=== PATIENT | female | born 1955 | race Hispanic/Latino ===

== ENCOUNTER → 2017-10-11 | Outpatient (CLI) | payer OTHER ==
[~2017-10-11] MED LIST: IOPAMIDOL 370 MG/ML 200 ML INFUS..BTL INJ ONE; SODIUM CHLORIDE 0.9% 50ML 50 ML ONE
[2017-10-11 08:36] LABS: BLOOD UREA NITROGEN 16 mg/dL (7-26); BUN/CREATININE RATIO 25 (6-25); CREATININE, SERUM 0.64 mg/dL (0.57-1.11); EST GLOMERULAR FILTRATION RATE > 60 ML/MIN (60-)
--- NOTE | 2017-10-11 09:16 | Diagnostic Imaging Report ---
PROCEDURE: CT ABDOMEN WITH CONTRAST TECHNIQUE: The abdomen was scanned utilizing a multidetector helical scanner from the diaphragm to the iliac crest after the IV administration of 100 cc Isovue 370. Coronal and sagittal multiplanar reformations were obtained. COMPARISON: CT abdomen and pelvis with and without contrast 11/09/2016. INDICATIONS: EPIGASTRIC PAIN, LIVER CYST FINDINGS: LOWER THORAX: Normal. HEPATOBILIARY: As before, there are multiple hypoattenuating hepatic lesions with internal attenuation less than 20 Hounsfield units compatible with simple cysts. Manufacturing Team Leader lesions as follows: Segment 4A previously 4.5 cm in diameter now 4.2 cm (series 2, image 11) Ovoid lesion in segment 3 previously measured 4.5 cm, now 4.8 cm (series 2 image 17) Multilobulated lesion in segment IVb previously measured 6.6 cm, now 6.3 cm (series 2 image 25) Segment 5 lesion previously measured 6.8 cm, now 6.6 cm (series 2 image 34) Segment 6 lesion previously measured 6.2 cm, now 6.6 cm (series 2 image 34) No solid hepatic mass lesion. No intrahepatic biliary ductal dilatation. The gallbladder is unremarkable. SPLEEN: No splenomegaly. PANCREAS: No focal masses or ductal dilatation. ADRENALS: No adrenal nodules. KIDNEYS: No hydronephrosis, stones, or solid mass lesions. PERITONEUM / RETROPERITONEUM: No free air or fluid. LYMPH NODES: No lymphadenopathy. VESSELS: Circumaortic left renal vein. Abdominal aorta is non-aneurysmal. Portal vein, splenic vein, and central superior mesenteric vein are patent. GI TRACT: Visualized portions of the bowel demonstrate no distention or wall thickening. Cecum and appendix are not included on the scan field of the current examination. BONES AND SOFT TISSUES: No focal soft tissue abnormalities. No osseous destructive lesion. IMPRESSION: Multiple simple hepatic cysts, stable to marginally increased in size relative to 11/09/2016. No solid or enhancing hepatic lesions. Dictated by: Sachin Gongora M.D. on 10/11/2017 at 9:16 Electronically approved by: Sachin Gongora M.D. on 10/11/2017 at 9:16
== END ==
LOC: CT 07:49
PROVIDERS: ATTEND Surgery
DX: R10.9 Unspecified abdominal pain (principal); K76.89 Other specified diseases of liver
CPT/HCPCS: 36415; 74160; 82565; 84520; 93970; Q9967

== ENCOUNTER 2017-11-29 07:40 | Inpatient (IN) | payer OTHER ==
[2017-11-27 10:33] LABS: BASOPHILS % 0.6 % (0.0-1.0); EOSINOPHILS # (AUTO) 0.1 (0.0-0.4); EOSINOPHILS % 1.5 % (0.0-6.0); HEMATOCRIT 42.1 % (34.2-44.1); LYMPHOCYTES # (AUTO) 1.4 (1.0-3.2); LYMPHOCYTES % 29.2 % (18.0-39.1); MEAN CORPUSCULAR HEMOGLOBIN 29.7 pg (28-32); MEAN CORPUSCULAR HGB CONC 33.3 g/dL (31-35); MEAN CORPUSCULAR VOLUME 89.2 fL (81-99); MONOCYTES # (AUTO) 0.4 (0.2-0.8); MONOCYTES % 7.4 % (4.4-11.3); NEUTROPHILS # (AUTO) 2.9 (2.1-6.9); NEUTROPHILS % 61.1 % (38.7-80.0); PLATELET COUNT 148 x10e3/uL (140-360); RED BLOOD COUNT 4.72 x10e6/uL (3.6-5.1); RED CELL DISTRIBUTION WIDTH 12.6 % (11.7-14.4)
[2017-11-27 10:55] LABS: BLOOD UREA NITROGEN 18 mg/dL (7-26); BUN/CREATININE RATIO 23 (6-25); CARBON DIOXIDE 30 mmol/L (22-29); CHLORIDE 107 mmol/L (98-107); CREATININE, SERUM 0.77 mg/dL (0.57-1.11); EST GLOMERULAR FILTRATION RATE > 60 ML/MIN (60-); GLUCOSE 120 mg/dL (74-118); SODIUM 146 mmol/L (136-145)
--- NOTE | 2017-11-27 11:46 | Diagnostic Imaging Report ---
PROCEDURE: Frontal and lateral views of the chest. COMPARISON: None. INDICATIONS: PRE OP SURGERY MONDAY LIVER FINDINGS: Lines/tubes: None. Lungs: The lungs are well inflated and clear. There is no evidence of pneumonia or pulmonary edema. Pleura: There is no pleural effusion or pneumothorax. Mild biapical pleural scarring. Heart and mediastinum: The heart and the mediastinum are normal. Bones: No acute bony abnormality. IMPRESSION: 1. No acute cardiopulmonary disease. Cynthia Nicole M.D. Dictated by: Cynthia Nicole M.D. on 11/27/2017 at 11:48 Electronically approved by: Cynthia Nicole M.D. on 11/27/2017 at 11:48
[~2017-11-29] VITALS: Ht 157.5 cm; Wt 74.9 kg
[2017-11-29] MEDS: SODIUM CHLORIDE 0.9% 1000ML 1,000 ML IV SCH ×3 (02:30→20:23)
[2017-11-29 06:35] LABS: INR 1.14; PROTHROMBIN TIME 13.7 seconds (11.9-14.5)
[2017-11-29 06:36] LABS: PARTIAL THROMBOPLASTIN TIME 29.4 seconds (23.8-35.5)
[~2017-11-29 07:40] MED LIST changes: +BUPIVACAINE 0.25%/EPI 30ML SDV INJ ONE; +HEPARIN SOD/SOD CHLORIDE 1,000 ML ONE; -IOPAMIDOL 370 MG/ML 200 ML INFUS..BTL INJ ONE; -SODIUM CHLORIDE 0.9% 50ML 50 ML ONE; +SYNTHROID100 MCG PO
--- OUTSIDE RECORDS SUMMARY | 2017-11-29 07:42 | XMS REPORT ---
Author [facility] Address Unknown Phone Unavailable Care Team Providers Care Wood Veneer Taper Name Role Phone DANNY SCHMIDT Unavailable Unavailable Problems This patient has no known problems. Allergies, Adverse Reactions, Alerts This patient has no known allergies or adverse reactions. Medications This patient has no known medications. Results Test Description Test Time Test Comments Text Results Atomic Results Result Comments CHEST 2 VIEWS [place] [address] Patient Name: JEANETTE WHITTAKER MR #: [id number] : 1955 Age/Sex: 62/F Req # : [id number] Adm Physician: Ordered by: DANNY SCHMIDT MD Report #: [id number] Location: OR Room/Bed: Procedure: 0430- 0030 DX/CHEST 2 VIEWS Exam Date: 11/27/17 Exam Time : 1000 REPORT STATUS: Signed PROCEDURE: Frontal and lateral views of the chest. COMPARISON: None. INDICATIONS: PRE OP SURGERY MONDAY LIVER FINDINGS: Lines/tubes: None. Lungs: The lungs are well inflated and clear. There is no evidence of pneumonia or pulmonary edema. Pleura: There is no pleural effusion or pneumothorax. Mild biapical pleural scarring. Heart and mediastinum: The heart and the mediastinum are normal. Bones: No acute bony abnormality. IMPRESSION: 1. No acute cardiopulmonary disease. Cynthia Callahan M.D. Dictated by: Cynhtia Callahan M.D. on 11/27/2017 at 11: 48 Electronically approved by: Cynthia Callahan M.D. on 11/27/2017 at 11:48 Dictated By: LEO CALLAHAN MD, MD 114 Transcribed By: ALEX on 11/27 1148 COPY TO: DANNY SCHMIDT MD CT ABDOMEN W [place] [address] Patient Name: JEANETTE WHITTAKER MR #: [id number] : 1955 Age/Sex: 62/F Req # : [id number] Adm Physician: Ordered by: DANNY SCHMIDT MD Report #: [id number] Location: CT Room/Bed: Procedure: [id number] 0006 CT/CT ABDOMEN W Exam Date: 10/11/17 Exam Time: 0850 REPORT STATUS: Signed PROCEDURE: CT ABDOMEN WITH CONTRAST TECHNIQUE: The abdomen was scanned utilizing a multidetector helical scanner from the diaphragm to the iliac crest after the IV administration of 100 cc Isovue 370. Coronal and sagittal multiplanar reformations were obtained. COMPARISON: CT abdomen and pelvis with and without contrast 11/09/2016. INDICATIONS: EPIGASTRIC PAIN, LIVER CYST FINDINGS: LOWER THORAX: Normal. HEPATOBILIARY: As before, there are multiple hypoattenuating hepatic lesions with internal attenuation less than 20 Hounsfield units compatible with simple cysts. 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 No intrahepatic biliary ductal dilatation. The gallbladder is unremarkable. SPLEEN: No splenomegaly. PANCREAS: No focal masses or ductal dilatation. ADRENALS: No adrenal nodules. KIDNEYS: No hydronephrosis, stones, or solid mass lesions. PERITONEUM / RETROPERITONEUM: No free air or fluid. LYMPH NODES: No lymphadenopathy. VESSELS: Circumaortic left renal vein. Abdominal aorta is non-aneurysmal. Portal vein, splenic vein, and central superior mesenteric vein are patent. GI TRACT: Visualized portions of the bowel demonstrate no distention or wall thickening. Cecum and appendix are not included on the scan field of the current examination. BONES AND SOFT TISSUES: No focal soft tissue abnormalities. No osseous destructive lesion. IMPRESSION: Multiple simple hepatic cysts, stable to marginally increased in size relative to 11/09/2016. No solid or enhancing hepatic lesions. Dictated by: Rui Solis M.D. on 10/11/2017 at 9:16 Electronically approved by: Rui Solis M.D. on 10/11/2017 at 9:16 Dictated By: RUI SOLIS MD [id number] Transcribed By: ALEX on 10/11/17 0916 COPY TO: DANNY SCHMIDT MD
--- OUTSIDE RECORDS SUMMARY | 2017-11-29 07:42 | XMS REPORT ---
Author Author Admin, [place] Organization [facility] Address [address] [address] Phone Allergies, Adverse Reactions, Alerts Allergy Name Reaction Description Start Date Severity Status Provider No Known Allergies Viktoriyajanny Patel Conditions or Problems Problem Name Problem Code Onset Date Status Entry Date Provider Comment Standard Description Annotate Infusion Nurse annual exam V72.3 Active Issac Richards MD Special investigations and examinations - Gynecological examination Hypothyroidism 244.9 Active Issac Richards MD Unspecified hypothyroidism Menopause symptoms 627.2 Active Issac Richards MD Symptomatic menopausal or female climacteric states Screening, vaginal cancer V76.47 Active Issac Richards MD Screening for malignant neoplasms of the vagina Medication List Medication Instructions Start Date Stop Date Generic Name NDC Status Provider Patient Instruction LEVOTHYROXINE SODIUM 100 MCG ORAL TABLET LEVOTHYROXINE SODIUM 80246828983 Active Issac Richards MD Active Vital Signs Date Name Value Unit Range Description blood pressure, diastolic 81 mm[Hg] BP bay blood pressure, systolic 135 mm[Hg] BP sys height E&M 62.25 [in_us] Bdy height pulse rate E&M 71 /min Heart rate respiratory rate E&M 16 /min Resp rate temperature E&M 98.3 [degF] Body temperature weight E&M 159 [lb_av] Weight Measured Procedures Code Procedure Name Date Entry Date Standard Description CPT-68445 New Patient Well Exam (40 - 64 Yrs) - 15377 10:04:27 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
[2017-11-29] MEDS ORDERED: ONDANSETRON HCL INJ 2 MG/ML VIAL IV PRN (10:30)
[2017-11-29] MEDS ORDERED: HYDROMORPHONE 1MG/1ML INJ IV PRN (10:30)
[2017-11-29] MEDS ORDERED: ACETAMINOPHEN 1000 MG/100 ML IV PRN (10:30)
[2017-11-29] MEDS ORDERED: FENTANYL CITRATE/PF 100MCG/2 ML INJ ONE ×2 (10:35→19:11)
[2017-11-29] MEDS ORDERED: METOCLOPRAMIDE HCL 10 MG/2ML VIAL ONE (10:48)
--- NOTE | 2017-11-29 12:15 | Operative Report ---
DATE OF PROCEDURE: November 29, 2017 PREOPERATIVE DIAGNOSIS: Multiple symptomatic cysts of the right and left lobe of the liver. POSTOPERATIVE DIAGNOSIS: Multiple symptomatic cysts of the right and left lobe of the liver. OPERATION PERFORMED 1. Diagnostic laparoscopy. 2. Laparoscopic lysis of adhesions. 3. Partial bilateral right and left lobe hepatic resections with resection of liver cysts times 8. FIBERGLASS MODEL MAKER: Dr. Ward Andrea and SAVANAH Marie. ANESTHESIA: General. COMPLICATIONS: None. ESTIMATED BLOOD LOSS: Minimal. DESCRIPTION OF PROCEDURE: With the patient lying in bed in the supine position under good general endotracheal anesthesia, the abdomen was prepped with Betadine solution and draped in the usual manner. A Veress needle was introduced into the umbilicus and pneumoperitoneum was established without any difficulty. An 11 mm trocar was placed into the umbilicus and a 10 mm video laparoscope was placed into the intraabdominal cavity. Under direct vision a 5 mm trocar was placed in the right mid abdomen and another 5 mm trocar was placed in the left mid abdomen. Laparoscopy at this point revealed multiple adhesions from the patient's previous surgeries with a lot of the omentum being stuck to the left lobe of the liver and also multiple adhesions in the left upper quadrant as well. All of this was slowly and carefully taken down using the harmonic scalpel. After we did all that the falciform ligament was similarly taken down to be able to have ample view of both lobes of the liver. At this point it became evident that there were multiple cysts, a total of 8 cysts some of which were rather large. There was 3 in the left lobe of the liver, 5 on the right lobe of the liver and the left lobe of the liver was done first. This cyst wall was then punctured superiorly in its finished spot and the clear fluid was aspirated and then using the harmonic scalpel all the wall of the cyst was removed including the part of the liver parenchyma where the cyst was present and all 3 of the ones in the left lobe of the liver were done similarly. The resected specimens were sent for pathological examination. Two of the cysts on the left side were in the lower most inferior aspect of the left lobe of the liver laterally, the other one was medially just lateral to the falciform ligament at the dome of the liver. Once this was done we then paid attention to the right side of the liver were there were multiple cysts. The cysts in the right lobe were much larger than the ones on the left. They were all similarly done. There was 2 of them that were in the dome of the liver and the other 3 were in the lower edge of the right lobe surrounding the gallbladder bed. The gallbladder was preserved during the entire dissection. All cysts were done in similar fashion and the specimens were sent for pathological examination. The whole area was then thoroughly irrigated and perfect hemostasis was ascertained. All of the excess fluid was aspirated. The pneumoperitoneum was evacuated and all the trocars were removed under direct vision. The midline fascia at the umbilicus was then closed with a maotfa-ga-aaklo of 0 Vicryl. All layers were infiltrated on the way out with solution of 1/4 percent Marcaine. Subcutaneous tissue was approximated with 3-0 Vicryl and the skin was closed with subcuticular 5-0 Vicryl and benzoin. Steri-Strips and Band-Aids were applied. The sponge, lap and needle count was correct. The patient tolerated the procedure well and returned to the recovery room in stable condition. Job#: [id number] RADHA
--- OUTSIDE RECORDS SUMMARY | 2017-11-29 12:27 | XMS REPORT ---
Author Author Admin, [place] Organization [facility] Address [address] [address] Phone Allergies, Adverse Reactions, Alerts Allergy Name Reaction Description Start Date Severity Status Provider No Known Allergies Viktoriyajanny Patel Conditions or Problems Problem Name Problem Code Onset Date Status Entry Date Provider Comment Standard Description Annotate Yard Jacker annual exam V72.3 Active Issac Richards MD [...] SODIUM 100 MCG ORAL TABLET LEVOTHYROXINE SODIUM [id number] Active Issac Richards MD Active Vital Signs [...] Procedure Name Date Entry Date Standard Description CPT-56260 New Patient Well Exam (40 - 64 Yrs) - [id number] 10:04:27 SPEAR FISHER
[2017-11-29 13:00] VITALS: BP 123/60
[2017-11-29] MEDS: PANTOPRAZOLE 40 MG 10ML VIAL IV SCH (13:00)
[2017-11-29] MEDS ORDERED: CEFAZOLIN SOD 1 GM/NS 50ML 50 ML IV SCH (14:00)
[2017-11-29 14:05] VITALS: BP 123/60
[2017-11-29 16:22] VITALS: BP 119/62
[2017-11-29] MEDS: CEFAZOLIN SOD 1 GM VIAL IV SCH ×2 (17:02→23:23)
[2017-11-29] MEDS: HYDROCODONE/APAP 7.5MG-325MG 1 EA TAB PO PRN (17:10)
[2017-11-29] MEDS ORDERED: GLYCOPYRROLATE INJ 1MG/ 5 ML SYR ONE (19:11)
[2017-11-29] MEDS ORDERED: SEVOFLURANE INHAL SOLN 250 ML PEN BTL ONE (19:11)
[2017-11-29] MEDS ORDERED: MIDAZOLAM HCL 2 MG/2 ML VIAL ONE (19:11)
[2017-11-29] MEDS ORDERED: DEXAMETHASONE SOD PHOS INJ 4 MG/ML VIAL ONE (19:11)
[2017-11-29] MEDS ORDERED: ROCURONIUM BROMIDE 10 MG/ML 5ML VIAL ONE (19:11)
[2017-11-29] MEDS ORDERED: CEFAZOLIN SOD 1 GM VIAL ONE (19:11)
[2017-11-29] MEDS ORDERED: PROPOFOL IV EMULSION 10 MG/ML 20 ML VIAL ONE (19:11)
[2017-11-29] MEDS ORDERED: NEOSTIGMINE 5 MG/5ML SYR ONE (19:11)
[2017-11-29] MEDS ORDERED: LIDOCAINE HCL 2% LOCAL INJ 5 ML SDV VIAL INJ ONE (19:11)
[2017-11-29] MEDS ORDERED: ACETAMINOPHEN 1000 MG/100 ML IV ONE (19:11)
[2017-11-29 20:00] VITALS: BP 123/58
[2017-11-29 20:05] VITALS: BP 123/58
[2017-11-29] MEDS ORDERED: HYDROMORPHONE 2MG/ML INJ IV PRN (20:30)
[2017-11-30] VITALS (7 sets, daily range): BP systolic 112–141; BP diastolic 56–69
[2017-11-30] MEDS: SODIUM CHLORIDE 0.9% 1000ML 1,000 ML IV SCH ×3 (02:30→18:57)
[2017-11-30] MEDS: HYDROCODONE/APAP 7.5MG-325MG 1 EA TAB PO PRN ×2 (06:28→18:05)
[2017-11-30 06:47] LABS: BASOPHILS % 0.3 % (0.0-1.0); EOSINOPHILS % 0.5 % (0.0-6.0); HEMATOCRIT 38.7 % (34.2-44.1); HEMOGLOBIN 12.7 g/dL (12.0-16.0); LYMPHOCYTES # (AUTO) 1.2 (1.0-3.2); LYMPHOCYTES % 20.3 % (18.0-39.1); MEAN CORPUSCULAR HEMOGLOBIN 29.3 pg (28-32); MEAN CORPUSCULAR HGB CONC 32.8 g/dL (31-35); MEAN CORPUSCULAR VOLUME 89.4 fL (81-99); MONOCYTES # (AUTO) 0.4 (0.2-0.8); MONOCYTES % 7.2 % (4.4-11.3); NEUTROPHILS # (AUTO) 4.2 (2.1-6.9); NEUTROPHILS % 71.4 % (38.7-80.0); PLATELET COUNT 124 x10e3/uL (140-360); RED BLOOD COUNT 4.33 x10e6/uL (3.6-5.1); RED CELL DISTRIBUTION WIDTH 12.7 % (11.7-14.4)
[2017-11-30 07:10] LABS: BLOOD UREA NITROGEN 9 mg/dL (7-26); BUN/CREATININE RATIO 13 (6-25); CALCIUM 8.6 mg/dL (8.4-10.2); CARBON DIOXIDE 26 mmol/L (22-29); CHLORIDE 111 mmol/L (98-107); EST GLOMERULAR FILTRATION RATE > 60 ML/MIN (60-); GLUCOSE 88 mg/dL (74-118); SODIUM 143 mmol/L (136-145)
[2017-11-30] MEDS: PANTOPRAZOLE 40 MG 10ML VIAL IV SCH (09:30)
[2017-11-30] MEDS: ONDANSETRON HCL 4 MG ORAL DISINTEGRATING TAB SL PRN ×2 (11:08→15:20)
[2017-12-01] VITALS (7 sets, daily range): BP systolic 120–156; BP diastolic 56–75
[2017-12-01] MEDS: SODIUM CHLORIDE 0.9% 1000ML 1,000 ML IV SCH (00:30)
[2017-12-01] MEDS: HYDROCODONE/APAP 7.5MG-325MG 1 EA TAB PO PRN ×2 (08:21→13:37)
[2017-12-01] MEDS: ONDANSETRON HCL 4 MG ORAL DISINTEGRATING TAB SL PRN ×2 (08:21→13:37)
[2017-12-01] MEDS: PANTOPRAZOLE 40 MG 10ML VIAL IV SCH (09:44)
== END 2017-12-01 18:05 | disposition home or self-care (01) | DRG 421 ==
LOC: OR 07:40 → MED/SURG 12:24
PROVIDERS: ADMIT Surgery; ATTEND Surgery
PROC: 0FB14ZX Excision of Right Lobe Liver, Percutaneous Endoscopic Approach, Diagnostic (ICD-10-PCS; 2017-11-29)
PROC: 0DNU4ZZ Release Omentum, Percutaneous Endoscopic Approach (ICD-10-PCS; 2017-11-29)
PROC: 0DNW4ZZ Release Peritoneum, Percutaneous Endoscopic Approach (ICD-10-PCS; 2017-11-29)
PROC: 0FB24ZX Excision of Left Lobe Liver, Percutaneous Endoscopic Approach, Diagnostic (ICD-10-PCS; principal; 2017-11-29 08:25)
DX: K76.89 Other specified diseases of liver (principal); Q44.6 Cystic disease of liver; N99.4 Postprocedural pelvic peritoneal adhesions; N73.6 Female pelvic peritoneal adhesions (postinfective); E03.9 Hypothyroidism, unspecified; Z79.52 Long term (current) use of systemic steroids
CPT/HCPCS: 36415; 71046; 80048; 85025; 85610; 85730; 86850; 86900; 86920; 88304; 93005; J0690; J1100; J2001; J2250; J2765; J7030

== ENCOUNTER → 2020-06-05 | Outpatient (CLI) | payer OTHER ==
[~2020-06-05] MED LIST changes: -BUPIVACAINE 0.25%/EPI 30ML SDV INJ ONE; +DIATRIZOATE MEGL/DIATRIZOA SOD 30 ML BTL PO ONE; -HEPARIN SOD/SOD CHLORIDE 1,000 ML ONE; +IOPAMIDOL 370 MG/ML 200 ML INFUS..BTL INJ ONE; +SODIUM CHLORIDE 0.9% 50ML 50 ML ONE
[2020-06-05 08:12] LABS: BLOOD UREA NITROGEN 15 mg/dL (7-26); BUN/CREATININE RATIO 19 (6-25); CREATININE, SERUM 0.81 mg/dL (0.57-1.11); EST GLOMERULAR FILTRATION RATE > 60 ML/MIN (60-)
--- NOTE | 2020-06-05 11:28 | Diagnostic Imaging Report ---
EXAM: CT Abdomen and Pelvis WITH intravenous contrast INDICATION: Abdominal pain COMPARISON: CT abdomen and pelvis of 11/04/2013 TECHNIQUE: Abdomen and pelvis were scanned utilizing a multidetector helical scanner from the lung base to the pubic symphysis after administration of IV contrast. Coronal and sagittal reformations were obtained. Routine protocol was performed. Scan was performed during portal venous phase. IV CONTRAST: 100mL of Isovue 370 ORAL CONTRAST: Gastrografin RADIATION DOSE: Total DLP: 306 mGy*cm Dose modulation, iterative reconstruction, and/or weight based adjustment of the mA/kV was utilized to reduce the radiation dose to as low as reasonably achievable. FINDINGS: LOWER THORAX: Normal. HEPATOBILIARY: Numerous right and left hepatic cysts, the largest of which measures up to 8.9 cm in segment 6 of the liver. Some of these cysts have increased in size since 2014 while others have decreased. No biliary ductal dilation. Unremarkable gallbladder. SPLEEN: No splenomegaly. PANCREAS: No focal masses or ductal dilatation. ADRENALS: No adrenal nodules. KIDNEYS/URETERS: 2 mm left lower pole nonobstructive renal calculus. No hydronephrosis or hydroureter. No solid renal mass lesion. PELVIC ORGANS/BLADDER: Status post hysterectomy. PERITONEUM / RETROPERITONEUM: No free air or fluid. LYMPH NODES: No lymphadenopathy. VESSELS: Unremarkable. GI TRACT: No distention or wall thickening. BONES AND SOFT TISSUES: No acute osseous injury. No suspicious lytic or blastic lesions. IMPRESSION: No acute findings in the abdomen or pelvis to account for patient's left upper quadrant abdominal pain. Right and left hepatic cysts, some of which are larger and some of which are smaller in size compared to the prior CT of 2013. Signed by: Seema Chambers MD on 06/05/2020 11:24 AM
== END ==
LOC: CT 07:26
PROVIDERS: ATTEND Surgery
DX: R10.12 Left upper quadrant pain (principal)
CPT/HCPCS: 36415; 74177; 82565; 84520; Q9967

== ENCOUNTER → 2021-01-11 | Outpatient (CLI) | payer OTHER ==
[~2021-01-11] MED LIST changes: -DIATRIZOATE MEGL/DIATRIZOA SOD 30 ML BTL PO ONE
== END ==
LOC: CT 15:03
PROVIDERS: ATTEND Surgery
DX: R10.12 Left upper quadrant pain (principal); M54.6 Pain in thoracic spine; M54.5 Low back pain
CPT/HCPCS: 71046; 72070; 72110; 74160; Q9967

== ENCOUNTER → 2022-03-18 | Outpatient (CLI) | payer OTHER ==
[~2022-03-18] MED LIST changes: +DIATRIZOATE MEGL/DIATRIZOA SOD 30 ML BTL PO ONE; -IOPAMIDOL 370 MG/ML 200 ML INFUS..BTL INJ ONE; -SODIUM CHLORIDE 0.9% 50ML 50 ML ONE
[2022-03-18 16:24] LABS: CREATININE, SERUM 0.92 mg/dL (0.57-1.11)
== END ==
LOC: CT 15:27
PROVIDERS: ATTEND Surgery
DX: R10.11 Right upper quadrant pain (principal); R07.89 Other chest pain
CPT/HCPCS: 36415; 72070; 74177; 82565; 84520; Q9963

== ENCOUNTER 2022-04-20 08:25 | Observation (INO) | payer OTHER ==
[2022-04-14 10:02] LABS: BASOPHILS % 0.6 % (0.0-1.0); EOSINOPHILS # (AUTO) 0.1 (0.0-0.4); EOSINOPHILS % 2.3 % (0.0-6.0); HEMATOCRIT 43.8 % (34.2-44.1); HEMOGLOBIN 14.3 g/dL (12.0-16.0); LYMPHOCYTES # (AUTO) 1.6 (1.0-3.2); LYMPHOCYTES % 33.6 % (18.0-39.1); MEAN CORPUSCULAR HEMOGLOBIN 29.2 pg (28-32); MEAN CORPUSCULAR HGB CONC 32.6 g/dL (31-35); MEAN CORPUSCULAR VOLUME 89.4 fL (81-99); MONOCYTES # (AUTO) 0.3 (0.2-0.8); MONOCYTES % 6.9 % (4.4-11.3); NEUTROPHILS # (AUTO) 2.7 (2.1-6.9); PLATELET COUNT 152 x10e3/uL (140-360)
[2022-04-14 10:28] LABS: ALBUMIN/GLOBULIN RATIO 1.7 (0.8-2.0); ANION GAP 13.6 mmol/L (8-16); CALCIUM 9.6 mg/dL (8.4-10.2); CREATININE, SERUM 0.78 mg/dL (0.57-1.11); POTASSIUM 4.6 mmol/L (3.5-5.1)
[~2022-04-20] VITALS: Ht 160 cm; Wt 73.9 kg
[2022-04-20] VITALS (9 sets, daily range): BP systolic 102–126; BP diastolic 50–61
[~2022-04-20 08:25] MED LIST changes: +BIOTIN 800 MCG1 EACH PO; -DIATRIZOATE MEGL/DIATRIZOA SOD 30 ML BTL PO ONE; +PANTOPRAZOLE SO40 MG PO; +TURMERIC 500 M1 EACH PO; +VIT D3 PO
[2022-04-20] MEDS ORDERED: BUPIVACAINE 0.25% 30ML SDV ONE (11:04)
[2022-04-20] MEDS: DEXTROSE 5%/LACTATED RINGERS 1,000 ML IV SCH ×2 (12:45→20:14)
[2022-04-20] MEDS ORDERED: HYDROMORPHONE 1MG/1ML INJ IV PRN (12:45)
[2022-04-20] MEDS ORDERED: ONDANSETRON HCL INJ 2MG/ML 2ML 2 MG/ML VIAL IV PRN ×2 (12:45→13:15)
[2022-04-20] MEDS ORDERED: HYDROCODONE/APAP 7.5MG-325MG 1 EA TAB PO PRN (12:45)
[2022-04-20] MEDS ORDERED: DEXAMETHASONE SOD PHOS INJ 4 MG/ML SDV ONE (12:46)
[2022-04-20] MEDS ORDERED: ONDANSETRON HCL INJ 2MG/ML 2ML 2 MG/ML VIAL ONE (12:46)
[2022-04-20] MEDS ORDERED: PROPOFOL IV EMULSION 10 MG/ML 20 ML VIAL ONE (12:46)
[2022-04-20] MEDS ORDERED: POVIDONE IODINE 0.05% 0.05 % ML PO ONE (12:46)
[2022-04-20] MEDS ORDERED: LIDOCAINE HCL 2% LOCAL INJ 5 ML SDV VIAL INJ ONE (12:46)
[2022-04-20] MEDS ORDERED: ROCURONIUM BROMIDE 10 MG/ML 5ML VIAL IV ONE (12:46)
[2022-04-20] MEDS ORDERED: SEVOFLURANE INHAL SOLN 250 ML PEN BTL ONE (12:46)
[2022-04-20] MEDS ORDERED: FENTANYL CITRATE/PF 100MCG/2 ML INJ ONE (12:50)
[2022-04-20] MEDS ORDERED: METOCLOPRAMIDE HCL 10 MG/2ML VIAL ONE (13:32)
[2022-04-20] MEDS ORDERED: PROMETHAZINE HCL (IM) 25 MG/ML VIAL IM ONE (13:49)
[2022-04-20] MEDS ORDERED: MEPERIDINE HCL INJ 25 MG/ML VIAL ONE (14:03)
[2022-04-20] MEDS ORDERED: ACETAMINOPHEN 1000 MG/100 ML IV PRN (18:00)
[2022-04-21] VITALS (10 sets, daily range): BP systolic 108–127; BP diastolic 49–67
[2022-04-21 05:22] LABS: BASOPHILS % 0.1 % (0.0-1.0); EOSINOPHILS % 0.1 % (0.0-6.0); HEMATOCRIT 38.2 % (34.2-44.1); HEMOGLOBIN 12.6 g/dL (12.0-16.0); LYMPHOCYTES # (AUTO) 1.3 (1.0-3.2); LYMPHOCYTES % 15.3 % (18.0-39.1); MEAN CORPUSCULAR HEMOGLOBIN 29.3 pg (28-32); MEAN CORPUSCULAR VOLUME 88.8 fL (81-99); MONOCYTES # (AUTO) 0.8 (0.2-0.8); MONOCYTES % 9.8 % (4.4-11.3); NEUTROPHILS # (AUTO) 6.2 (2.1-6.9); NEUTROPHILS % 74.1 % (38.7-80.0); PLATELET COUNT 179 x10e3/uL (140-360); RED CELL DISTRIBUTION WIDTH 13.1 % (11.7-14.4)
[2022-04-21 05:32] LABS: ANION GAP 11.3 mmol/L (8-16); CALCIUM 8.9 mg/dL (8.4-10.2); CREATININE, SERUM 0.74 mg/dL (0.57-1.11); POTASSIUM 4.3 mmol/L (3.5-5.1)
[2022-04-21] MEDS: DEXTROSE 5%/LACTATED RINGERS 1,000 ML IV SCH ×2 (08:05→21:06)
[2022-04-22] VITALS: BP 121/65
[2022-04-22 04:00] VITALS: BP 112/62
[2022-04-22 07:50] VITALS: BP 130/54
[2022-04-22 09:05] VITALS: BP 130/54
[2022-04-22 11:10] VITALS: BP 128/68
[2022-04-22 16:00] VITALS: BP 134/59
== END 2022-04-22 17:54 | disposition home or self-care (01) ==
LOC: OR 08:25 → PACU V 13:15 → MED/SURG 14:28
PROVIDERS: ADMIT Surgery; ATTEND Surgery
DX: R16.0 Hepatomegaly, not elsewhere classified (principal); K82.8 Other specified diseases of gallbladder; Z20.822 Contact with and (suspected) exposure to COVID-19; K80.10 Calculus of gallbladder with chronic cholecystitis without obstruction; E03.9 Hypothyroidism, unspecified
CPT/HCPCS: 36415; 71046; 80048; 80053; 85025; 88304; 93005; 99251; C1766; G0378; J0690; J1100; J2001; J2175; J2405; J2550; J2765; J3010

== ENCOUNTER → 2024-02-21 | Outpatient (REF) | payer OTHER ==
[~2024-02-21] MED LIST changes: +IOPAMIDOL 370 MG/ML 100 ML INFUS..BTL INJ ONE
[2024-02-21 16:39] LABS: CREATININE, SERUM 1.02 mg/dL (0.57-1.11)
== END ==
LOC: CT 15:56
PROVIDERS: ATTEND Surgery
DX: R19.01 Right upper quadrant abdominal swelling, mass and lump (principal)
CPT/HCPCS: 36415; 74170; 82565; 84520; Q9967